=== PATIENT | female | born 1960 | race Caucasian/White ===

== ENCOUNTER 2016-10-29 12:31 | Inpatient (IN) | payer OTHER ==
[~2016-10-29] VITALS: Ht 162.6 cm; Wt 70.1 kg
[2016-10-29] MEDS ORDERED: ASPI1TAB69 PO (12:57)
[2016-10-29] MEDS ORDERED: LIPI40TA PO (12:57)
[2016-11-04] VITALS (12 sets, daily range): BP systolic 122–147; BP diastolic 57–94; PULSE 73–91; RESP 14–20; TEMP 97.5–98.2; O2SAT 96–100
[2016-11-04] MEDS ORDERED: INSULIN HUMAN REGULAR 1,000 UNITS/10 ML VIAL SQ PRN (07:00)
[2016-11-04] MEDS ORDERED: METOPROLOL TARTRATE 25 MG TAB PO PRN (07:00)
[2016-11-04] MEDS ORDERED: LACTATED RINGER'S 1000 ML IV SCH (07:00)
[2016-11-04] MEDS ORDERED: SODIUM CHLORID 0.9% 500 ML IV SCH (07:00)
[2016-11-04] MEDS ORDERED: HEPARIN SODIUM - SQ 10,000 UNITS/ML VIAL ONE (07:23)
[2016-11-04] MEDS ORDERED: PROTAMINE SULFATE 50 MG/5 ML VIAL ONE (07:24)
--- NOTE | 2016-11-04 07:40 | HHI.HP ---
History of Present Illness Chief Complaint: TIAs (R eye amaurosis) History of Present Illness 56 yo female with R eye amaurosis and headaces. Her worst headaches were back in Nov but now just steady. No motor CVA/TIA. CT scan showed string sign of R ICA and high grade stenosis of L ICA. On appropriate medical therapy. Presents for R CEA. 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, but on disability now appropriately Family History none Home Medications Reported Medications Aspirin 81 Mg Tabdr81 Mg PO DAILY 10/29/16 Atorvastatin (Lipitor)40 Mg Tab40 Mg PO DAILY #30 TAB Ref 0 10/29/16 Discontinued Scripts Trimethoprim/Sulfamethoxazole (Bactrim Ds) Tab1 Tab PO Q12 5 Days Prov:Shaniqua Randle MD 12/09/13 Coded Allergies: Ciprofloxacin (Verified Allergy, Severe, Hives, ANAPHYLAXIS, 11/04/16) Codeine (Verified Allergy, Severe, Itching, 11/04/16) Penicillin (Verified Allergy, Severe, Hives, ANAPHYLAXIS, 11/04/16) Review of Systems Constitutional: DENIES: Fever, Weight loss, Chills Eyes: COMPLAINS OF: Vision loss Cardiovascular: DENIES: Chest pain, Orthopnea Physical Exam Vitals/I&O Date Time Temp Pulse Resp B/P Pulse Ox O2 Delivery O2 Flow Rate FiO2 11/04/16 07:13 98.1 86 18 123/82 98 Neuro: alert, oriented, no distress HEENT: PERRLA, EOMI, anicteric Neck: no JVD, no rashes on neck Heart: reg rate Lungs: clear, nonlabored Abdomen: NT Vascular: palp UE pulses Extremities: no CCE Hct 37 Plt 268 Cr 0.8 CTA reviewed - string sign R ICA with distal diminutive ICA (?underperfused) L ICA high grade calcific stenosis Assessment and Plan Plan R CEA today. I discussed risks and benefits with the patient in clinic and reiterated today. She understands and agrees to proceed to OR. R neck marked. Discharge Planning 1-2 d post surgery Benson De Paz MD Nov 04, 2016 07:40
[2016-11-04] MEDS ORDERED: CLINDAMYCIN INJ 900 MG in SODIUM CHLORIDE 0.9% INJ 100 ML IV SCH (08:15)
[2016-11-04] MEDS ORDERED: HEPARIN SODIUM - IV 10,000 UNITS/10 ML VIAL ONE (08:38)
[2016-11-04] MEDS: D5-1/2 NS + KCL 20 MEQ INJ 1,000 ML IV SCH (10:09)
--- NOTE | 2016-11-04 10:09 | HHI.PR ---
cc: Myron Grewal MD Immediate Post Op Note Procedure Date: Nov 04, 2016 Pre Op Diagnosis: symptomatic R carotid stenosis Post Op Diagnosis: symptomatic R carotid stenosis Surgeon: Benson De Paz Personnel Consultant(s): Dimitri Campuzano Procedure: R CEA Findings: high grade stenosis, successful TEA and patch good Doppler signals distal ICA and ECA after patch Additional Information: WALLACE at conclusion of case Complications: none apparent Specimen(s) removed: carotid plaque, not for pathology Estimated blood loss: 150 mL Anesthesia: General Drains: None Fluids: 1600 mL x'oid IVF Patient to: PACU Patient Condition: Good Implant/Devices: SEE IMPLANT LOG (if applicable) Date/Time of Procedure: SEE SURGICAL CARE RECORD Benson De Paz MD Nov 04, 2016 10:09
[2016-11-04] MEDS ORDERED: MORPHINE SULFATE 4 MG/ML INJ IV PRN (10:15)
[2016-11-04] MEDS ORDERED: HYDROmorphone HCL 2 MG TAB PO PRN (10:15)
[2016-11-04] MEDS ORDERED: fentaNYL CITRATE 250 MCG/5 ML AMP ONE ×2 (10:28→10:29)
[2016-11-04] MEDS ORDERED: MIDAZOLAM HCL 2 MG/2 ML VIAL ONE (10:28)
[2016-11-04] MEDS ORDERED: *HYDROmorphone PF 1 MG VIAL PERIprocedural Use ONLY ONE ×4 (10:45→13:28)
[2016-11-04] MEDS ORDERED: *hydrOXYzine 25 MG VIAL PERIprocedural Use ONLY IM ONE (11:11)
[2016-11-04] MEDS ORDERED: SODIUM CHLORID 0.9% 500 ML INJ 500 ML IV ONE (12:00)
[2016-11-04] MEDS ORDERED: PHENYLEPHRINE HCL 10 MG/ML VIAL IV ONE (12:00)
[2016-11-04] MEDS ORDERED: PROPOFOL 500 MG/50 ML BTL IV ONE (12:00)
[2016-11-04] MEDS ORDERED: ONDANSETRON HCL 4 MG/2 ML VIAL IV PUSH ONE (12:00)
[2016-11-04] MEDS ORDERED: SODIUM CHLOR 0.9% 250 ML INJ 250 ML IV ONE (12:00)
[2016-11-04] MEDS ORDERED: LACTATED RINGER'S 1000 ML INJ 1,000 ML IV ONE (12:00)
[2016-11-04] MEDS ORDERED: NORMOSOL R INJ 1,000 ML IV ONE (12:00)
--- NOTE | 2016-11-04 12:38 | PD.VS.PN ---
Subjective POD #: 0 Procedure(s): R CEA Subjective/Hospital Course doing well in PACU, no complaints except incisional pain Neuro intact Objective Vitals/I&O Date Time Temp Pulse Resp B/P Pulse Ox O2 Delivery O2 Flow Rate FiO2 11/04/16 12:00 79 16 138/85 100 Nasal Cannula 2 11/04/16 11:30 70 16 120/51 100 Nasal Cannula 2 11/04/16 11:15 80 15 129/63 100 Nasal Cannula 3 11/04/16 11:00 80 16 122/59 100 Nasal Cannula 3 11/04/16 10:45 79 15 139/87 98 Nasal Cannula 3 11/04/16 10:30 87 15 127/66 98 Nasal Cannula 3 11/04/16 10:21 97.6 81 15 120/72 99 Nasal Cannula 3 11/04/16 07:13 98.1 86 18 123/82 98 11/04/16 11/04/16 11/04/16 07:00 15:00 23:00 Intake Total 1500 ml Output Total 750 ml Balance 750 ml Exam: R neck incision c/d/i WALLACE x 4 CN intact Laboratory Laboratory Tests Test 11/04/16 07:03 Blood Type A NEGATIVE Antibody Screen NEGATIVE Blood Bank Comment Assessment and Plan Plan Neuro intact after R CEA BP control Diet OOB ad ros ASA, statin Discharge Planning likely tomorrow Benson De Paz MD Nov 04, 2016 12:38
[2016-11-04] MEDS ORDERED: LORazepam 2 MG/ML VIAL ONE (12:45)
[2016-11-04] MEDS: LORazepam 2 MG/ML VIAL IV PUSH PRN (15:24)
[2016-11-04] MEDS: HYDROmorphone HCL PF 2 MG/ML VIAL IV PUSH PRN ×2 (18:34→22:23)
[2016-11-04] MEDS ORDERED: ATORVASTATIN 40 MG TAB PO SCH (21:00)
[2016-11-04] MEDS: DOCUSATE SODIUM 100 MG CAP PO SCH (21:00)
[2016-11-04] MEDS: METOPROLOL TARTRATE 25 MG TAB PO SCH (22:14)
[2016-11-05] VITALS (14 sets, daily range): BP systolic 121–125; BP diastolic 78–80; PULSE 73–96; RESP 14–20; TEMP 97.8–98.5; O2SAT 94–97
[2016-11-05] MEDS: LORazepam 2 MG/ML VIAL IV PUSH PRN (02:51)
[2016-11-05] MEDS: HYDROmorphone HCL PF 2 MG/ML VIAL IV PUSH PRN (02:51)
[2016-11-05] MEDS: METOPROLOL TARTRATE 25 MG TAB PO SCH (07:47)
[2016-11-05] MEDS: DOCUSATE SODIUM 100 MG CAP PO SCH (07:47)
[2016-11-05 07:55] LABS: HEMATOCRIT 34.7 % (35.0-46.0); MEAN CELL VOLUME 95.4 FL (80.0-100.0); MEAN CORPUSCULAR HEMOGLOBIN 32.7 PG (27.0-34.0); MEAN CORPUSCULAR HGB CONC 34.2 % (32.0-36.0); PLATELET COUNT 181 TH/MM3 (150-450); RED BLOOD COUNT 3.64 MIL/MM3 (4.00-5.30); REVIEW FLAG FINAL; WHITE BLOOD COUNT 5.9 TH/MM3 (4.0-11.0)
[2016-11-05 08:17] LABS: BICARBONATE 27.5 MEQ/L (21.0-32.0); POTASSIUM 4.3 MEQ/L (3.5-5.1)
[2016-11-05] MEDS ORDERED: ENOXAPARIN SODIUM 30 MG/0.3 ML SYRINGE SQ SCH (09:00)
[2016-11-05] MEDS ORDERED: PANTOPRAZOLE SOD 40 MG DELAYED RELEASE TAB PO SCH (09:00)
[2016-11-05] MEDS ORDERED: ASPIRIN 325 MG TAB PO SCH (09:00)
[2016-11-05] MEDS: D5-1/2 NS + KCL 20 MEQ INJ 1,000 ML IV SCH (10:11)
--- NOTE | 2016-11-05 11:07 | PD.VS.PN ---
Subjective Subjective/Hospital Course no complaints except incisional pain Neuro intact Objective Vitals/I&O Date Time Temp Pulse Resp B/P Pulse Ox O2 Delivery O2 Flow Rate FiO2 11/05/16 10:00 84 11/05/16 09:00 88 11/05/16 08:00 98.5 95 14 123/80 97 11/05/16 08:00 90 11/05/16 07:00 96 11/05/16 06:00 94 11/05/16 05:00 91 11/05/16 04:00 91 11/05/16 03:00 85 11/05/16 03:00 97.8 89 20 121/80 97 11/05/16 02:00 85 11/05/16 01:00 87 11/05/16 00:00 88 11/04/16 23:00 98.1 84 18 124/57 96 11/04/16 23:00 91 11/04/16 22:00 82 11/04/16 21:00 86 11/04/16 20:00 86 11/04/16 19:00 81 11/04/16 19:00 98.2 73 20 122/79 99 Arterial Line 11/04/16 18:01 81 11/04/16 17:30 97.5 82 14 147/82 100 11/04/16 17:00 78 11/04/16 16:10 80 11/04/16 15:00 80 11/04/16 15:00 97.8 73 16 144/88 100 11/04/16 14:00 80 11/04/16 14:00 98.0 80 16 143/94 100 11/04/16 13:45 98.3 74 16 124/56 98 Nasal Cannula 2 11/04/16 13:30 75 16 126/58 96 Room Air 11/04/16 13:00 70 15 124/56 100 Nasal Cannula 2 11/04/16 12:30 77 15 121/73 100 Nasal Cannula 2 11/04/16 12:00 79 16 138/85 100 Nasal Cannula 2 11/04/16 11:30 70 16 120/51 100 Nasal Cannula 2 11/04/16 11:15 80 15 129/63 100 Nasal Cannula 3 Physical Exam right neck incision clean. right neck minimal tenderness. CN2-12 intact. Gross motor and sensory intact upper and lower extremities. Laboratory Laboratory Tests Test 11/05/16 07:07 White Blood Count 5.9 Red Blood Count 3.64 Hemoglobin 11.9 Hematocrit 34.7 Mean Corpuscular Volume 95.4 Mean Corpuscular Hemoglobin 32.7 Mean Corpuscular Hemoglobin 34.2 Concent Red Cell Distribution Width 14.0 Platelet Count 181 Mean Platelet Volume 8.0 Sodium Level 137 Potassium Level 4.3 Chloride Level 102 Carbon Dioxide Level 27.5 Anion Gap 8 Blood Urea Nitrogen 7 Creatinine 0.73 Estimat Glomerular Filtration 83 Rate Random Glucose 112 Calcium Level 8.6 Assessment and Plan Plan Neuro intact after R CEA Will see if tolerates lunch with pain meds. Increased motion without pain when turning neck. Plan for discharge later today with PO pain meds. Full discharge summary to follow. Dimitri Johnson DO, KALYAN Discharge Planning likely tomorrow Dimitri Johnson DO Nov 05, 2016 11:07
--- NOTE | 2016-11-05 12:59 | PD.VS.DC ---
Discharge Summary Admission Date: Nov 04, 2016 at 06:31 Discharge Date: Nov 05, 2016 Admission Diagnosis: (1) Carotid artery disease Discharge Diagnosis: (1) S/P carotid endarterectomy Status: Acute Brief History from admission 56 yo female with R eye amaurosis and headaches. Her worst headaches were back in Nov but now just steady. No motor CVA/TIA. CT scan showed string sign of R ICA and high grade stenosis of L ICA. On appropriate medical therapy. Presents for R CEA. No interval changes in history Procedure(s): R CEA Significant Findings GENERAL: A&OX3, Affect appropriate to situation, NAD, GCS 15 SKIN: Warm and dry. Incision to right side of neck intact with surgical glue, NO redness, swelling or drainage NECK: Supple CARDIOVASCULAR: +S1,S2 RESPIRATORY: Breath sounds equal bilaterally. No accessory muscle use. MUSCULOSKELETAL: No cyanosis, or edema. CN 2-12 intact Laboratory Tests Test 11/05/16 07:07 Red Blood Count 3.64 MIL/MM3 (4.00-5.30) Hematocrit 34.7 % (35.0-46.0) Estimat Glomerular Filtration 83 ML/MIN (>89) Rate Random Glucose 112 MG/DL (74-106) Hospital Course: Pt has a hx of symptomatic carotid artery disease Was admitted for surgical intervention R CEA Pt has done well post-op with CN 2-12 intact, noted to have NO neurological deficits throughout visit Pt will f/u in our OPC on 11/26/16 Allergies Coded Allergies Type Severity Reaction Last Updated Verified Ciprofloxacin Allergy Severe Hives, ANAPHYLAXIS 11/04/16 Yes Codeine Allergy Severe Itching 11/04/16 Yes Penicillin Allergy Severe Hives, ANAPHYLAXIS 11/04/16 Yes 11/03///////// 06:00 18:00 06:00 18:00 06:00 18:00 Intake Total 2132 ml 1038 ml Output Total 1600 ml 1800 ml Balance 532 ml -762 ml Intake Oral 180 ml 720 ml IV Total 452 ml 318 ml Other 1500 ml Output Urine Total 1450 ml 1800 ml Estimated Blood Loss 150 ml # Bowel Movements 1 0 Laboratory Tests Test 11/04/16 11/05/16 07:03 07:07 Blood Type A NEGATIVE Antibody Screen NEGATIVE Blood Bank Comment White Blood Count 5.9 TH/MM3 Red Blood Count 3.64 MIL/MM3 Hemoglobin 11.9 GM/DL Hematocrit 34.7 % Mean Corpuscular Volume 95.4 FL Mean Corpuscular Hemoglobin 32.7 PG Mean Corpuscular Hemoglobin 34.2 % Concent Red Cell Distribution Width 14.0 % Platelet Count 181 TH/MM3 Mean Platelet Volume 8.0 FL Sodium Level 137 MEQ/L Potassium Level 4.3 MEQ/L Chloride Level 102 MEQ/L Carbon Dioxide Level 27.5 MEQ/L Anion Gap 8 MEQ/L Blood Urea Nitrogen 7 MG/DL Creatinine 0.73 MG/DL Estimat Glomerular Filtration 83 ML/MIN Rate Random Glucose 112 MG/DL Calcium Level 8.6 MG/DL Procedure Category Date Status Time Type And Screen BBK 11/04/16 Complete 06:36 Lactated Ringer's MED 11/04/16 Complete 1000 Ml Inj (Lr 1000 M 07:00 Sodium Chlorid 0.9% MED 11/04/16 Complete 500 Ml Inj (Ns 500 M 07:00 Insulin Human Regular MED 11/04/16 Complete Inj (Novolin R Inj 07:00 Metoprolol Tartrate MED 11/04/16 Complete (Lopressor) 07:00 Heparin Inj (Heparin MED 11/04/16 Complete Inj) 07:23 Protamine Sulfate Inj MED 11/04/16 Complete (Protamine Sulfate 07:24 Clindamycin Inj MED 11/04/16 Complete (Cleocin Inj) 08:15 Heparin Inj (Heparin MED 11/04/16 Complete Inj) 08:38 Am Admit Pre Op Care [facility] 11/04/16 Complete Admit To Inpatient ADMITTING 11/04/16 Transmitted Code Status CODE 11/04/16 Transmitted 10:09 Vital Signs (Adult) DREA 11/04/16 In Process 10:09 Sourcing Specialist / DREA 11/04/16 In Process Telemetry 10:09 Activity Oob Ad Yuliya DREA 11/04/16 In Process 10:09 ^ Notify Dr. SHEPARD 11/04/16 In Process Parameters 10:09 Diet Heart Healthy DIET 11/04/16 Transmitted Lunch Basic Metabolic Panel LAB 11/05/16 Complete (Bmp) 06:00 Cbc No Diff, Includes LAB 11/05/16 Complete Plts 06:00 D5-1/2 Ns + Kcl 20 MED 11/04/16 In Process Meq Inj (D5-1/2 Ns + 10:09 Aspirin (Aspirin) MED 11/05/16 In Process 09:00 Pantoprazole MED 11/05/16 In Process (Protonix) 09:00 Metoprolol Tartrate MED 11/04/16 In Process (Lopressor) 21:00 Atorvastatin (Lipitor) MED 11/04/16 In Process 21:00 Hydromorphone MED 11/04/16 In Process (Dilaudid) 10:15 Morphine Inj MED 11/04/16 Complete (Morphine Inj) 10:15 Docusate Sodium MED 11/04/16 In Process (Colace) 21:00 Scd Bilateral/Knee DREA 11/04/16 In Process High 10:09 Inpatient ADMITTING 11/04/16 Transmitted Certification Enoxaparin Inj MED 11/05/16 Logged (Lovenox Inj) 09:00 Fentanyl Inj MED 11/04/16 Complete (Fentanyl Inj) 10:28 Midazolam Inj (Versed MED 11/04/16 Complete Inj) 10:28 Fentanyl Inj MED 11/04/16 Complete (Fentanyl Inj) 10:29 *Hydromorphone Pf Inj MED 11/04/16 Complete (*Dilaudid Pf Inj 10:45 *Hydromorphone Pf Inj MED 11/04/16 Complete (*Dilaudid Pf Inj 10:58 *Hydroxyzine Inj MED 11/04/16 Complete (*Vistaril Inj 11:11 *Hydromorphone Pf Inj MED 11/04/16 Complete (*Dilaudid Pf Inj 11:28 Hydromorphone Pf Inj MED 11/04/16 In Process (Dilaudid Pf Inj) 12:45 Lorazepam Inj (Ativan MED 11/04/16 Complete Inj) 12:45 *Hydromorphone Pf Inj MED 11/04/16 Complete (*Dilaudid Pf Inj 13:28 Lorazepam Inj (Ativan MED 11/04/16 In Process Inj) 15:00 Class [facility] Complete MIN [facility]/04/16 Complete Post Anesthesia [facility] 11/04/16 Complete Pacu [facility] 11/04/16 Complete Hourly Attending Discharge DISCHARGE 11/05/16 Transmitted Order Vital Signs Date Time Temp Pulse Resp B/P Pulse Ox O2 Delivery O2 Flow Rate FiO2 11/05/16 12:00 78 11/05/16 12:00 98.4 73 16 125/78 94 11/05/16 11:00 75 11/05/16 10:00 84 11/05/16 09:00 88 11/05/16 08:00 98.5 95 14 123/80 97 11/05/16 08:00 90 11/05/16 07:00 96 11/05/16 06:00 94 11/05/16 05:00 91 11/05/16 04:00 91 11/05/16 03:00 85 11/05/16 03:00 97.8 89 20 121/80 97 11/05/16 02:00 85 11/05/16 01:00 87 11/05/16 00:00 88 11/04/16 23:00 98.1 84 18 124/57 96 11/04/16 23:00 91 11/04/16 22:00 82 11/04/16 21:00 86 11/04/16 20:00 86 11/04/16 19:00 81 11/04/16 19:00 98.2 73 20 122/79 99 Arterial Line 11/04/16 18:01 81 11/04/16 17:30 97.5 82 14 147/82 100 11/04/16 17:00 78 11/04/16 16:10 80 11/04/16 15:00 80 11/04/16 15:00 97.8 73 16 144/88 100 11/04/16 14:00 80 11/04/16 14:00 98.0 80 16 143/94 100 11/04/16 13:45 98.3 74 16 124/56 98 Nasal Cannula 2 11/04/16 13:30 75 16 126/58 96 Room Air 11/04/16 13:00 70 15 124/56 100 Nasal Cannula 2 11/04/16 12:30 77 15 121/73 100 Nasal Cannula 2 11/04/16 12:00 79 16 138/85 100 Nasal Cannula 2 11/04/16 11:30 70 16 120/51 100 Nasal Cannula 2 11/04/16 11:15 80 15 129/63 100 Nasal Cannula 3 11/04/16 11:00 80 16 122/59 100 Nasal Cannula 3 11/04/16 10:45 79 15 139/87 98 Nasal Cannula 3 11/04/16 10:30 87 15 127/66 98 Nasal Cannula 3 11/04/16 10:21 97.6 81 15 120/72 99 Nasal Cannula 3 11/04/16 07:13 98.1 86 18 123/82 98 Discharge Condition: Good Discharge Disposition: Discharge Home Discharge Instructions: Keep incision clean and dry and open to air Avoid perfume, creams or ointments to incision site Report any New-Onset fever, Headache, swelling, drainage or redness ti incision site Follow-up at scheduled appointment time 11/26/16 Call the office with any questions or concerns Maryellen GASPAR [facility]/[place] [phone] Any questions or concerns: Call [facility] Surgery at [facility] [phone] Maryellen Knight Nov 05, 2016 12:59
--- NOTE | 2016-11-07 21:36 | MP ---
cc: FRANCISCO DE PAZ MD DATE OF SURGERY November 04, 2016 PREOPERATIVE DIAGNOSIS Symptomatic right carotid stenosis. POSTOPERATIVE DIAGNOSIS Symptomatic right carotid stenosis. OPERATION Right carotid endarterectomy. ATTENDING SURGEON Francisco De Paz MD BPO SPECIALIST SURGEON Dr. Dimitri Campuzano ANESTHESIA General. INDICATION Ms. Yee is a 56-year-old lady who has symptomatic right carotid stenosis manifesting as amaurosis. She is taken to the operating room for elective endarterectomy. Preoperatively risks and benefits including stroke and transient ischemic attack were discussed with the patient. PROCEDURE DETAILS Informed consent was obtained from the patient. She was taken to the operating room and placed supine on the operating table. An appropriate time out was taken to assure the patient's identity and the operative site and planned procedure. 900 milligrams of Clindamycin were administered prior to skin incision and will be discontinued after a single preoperative dose. The patient has a penicillin allergy. Everyone in the room agreed with time out and we proceeded. The right neck was prepped and draped and an incision was made along the anterior border of the sternocleidomastoid and carried down to the subcutaneous tissue with electrocautery. The facial vein was identified and ligated between 3-0 silk. The carotid artery was identified, dissected from the common carotid artery which was very calcified. The external and internal carotid arteries and hypoglossal nerve identified and protected. The patient was systemically heparinized. Once the heparin was effective to an ACT of greater than 250, distal then proximal control were obtained and a longitudinal arteriotomy was made with an 11 blade and extended with Fuller scissors. There was a high grade near occlusive lesion at the carotid bifurcation. The distal carotid was noted to be quite small. Attempts were made to place a shunt, however, this was unsuccessful. The carotid back bled quite nicely and there were no neurological changes and so I was justified and safe in proceeding without a shunt. The carotid artery was endarterectomized without difficulty. A single 6-0 tacking suture was made. Once we achieved a good endarterectomy end point proximally, distally and down the external carotid, the arteriotomy was closed with a patch using running 6-0 Prolene suture. At the completion it was flushed and noted to be hemostatic with repair sutures. There was a nice Doppler signal in the distal internal carotid artery. The heparin was reversed with protamine. There were no neurological changes throughout. The wound was irrigated and made hemostatic and closed with 2-0 Vicryl and 4-0 Monocryl. Sponge and needle counts were correct at the end of the case. I was present and scrubbed for the entire procedure. MD MAURILIO Vargas/LAN /12:54 PM /8:07 PM [email or web address]
== END 2016-11-05 13:39 | disposition home or self-care (01) | DRG 39 ==
LOC: HSDI 11-04 06:31 → HCIN 11-04 13:58
PROVIDERS: ADMIT Surgery; ATTEND Surgery
PROC: 03CM0Z6 (ICD-10-PCS; 2016-11-04)
PROC: 03UM0JZ Supplement Right External Carotid Artery with Synthetic Substitute, Open Approach (ICD-10-PCS; 2016-11-04)
PROC: 03UK0JZ Supplement Right Internal Carotid Artery with Synthetic Substitute, Open Approach (ICD-10-PCS; 2016-11-04)
PROC: 03CK0Z6 (ICD-10-PCS; principal; 2016-11-04 07:55)
DX: I65.21 Occlusion and stenosis of right carotid artery (principal); I10 Essential (primary) hypertension; H54.0 Blindness, both eyes; Z79.82 Long term (current) use of aspirin; F17.210 Nicotine dependence, cigarettes, uncomplicated; E78.5 Hyperlipidemia, unspecified
CPT/HCPCS: 80048; 85027; 86850; 86900; 86901; C1768; J1170; J1644; J1650; J2060; J2250; J2370; J2405; J2720; J3010; J3410; J3480; J7040; J7050; J7120

== ENCOUNTER → 2016-10-29 | Outpatient (CLI) | payer OTHER ==
[~2016-10-29] MED LIST: ASPI1TAB69 PO; DILA2TAB2 PO; LIPI40TA PO; SULF1TAB47 PO
--- NOTE | 2016-10-29 13:26 | RADRPT ---
EXAM DATE/TIME: 10/29/2016 13:21 [place] COMPARISON: No previous studies available for comparison. INDICATIONS : Evaluate for pneumothorax, pneumonia or communicable disease. Pre-operative for corotid artery surger y. MEDICAL HISTORY : None. SURGICAL HISTORY : Breast augmentation. ENCOUNTER: Initial ACUITY: 1 day PAIN SCORE: 0/10 LOCATION: Bilateral chest FINDINGS: PA and lateral views of the chest demonstrate the lungs to be symmetrically aerated without evidence of mass, infiltrate or effusion. The cardiomediastinal contours are unremarkable. Osseous structure s are intact. CONCLUSION: No acute disease. Emerson Mcgee MD on October 29, 2016 at 13:24 Board Certified Radiologist. This report was verified electronically.
[2016-10-29 13:33] LABS: HEMATOCRIT 37.2 % (35.0-46.0); MEAN CELL VOLUME 94.1 FL (80.0-100.0); MEAN CORPUSCULAR HEMOGLOBIN 33.2 PG (27.0-34.0); MEAN CORPUSCULAR HGB CONC 35.2 % (32.0-36.0); PLATELET COUNT 268 TH/MM3 (150-450); RED BLOOD COUNT 3.95 MIL/MM3 (4.00-5.30); RED CELL DISTRIBUTION WIDTH 13.8 % (11.6-17.2); REVIEW FLAG FINAL; WHITE BLOOD COUNT 6.6 TH/MM3 (4.0-11.0)
[2016-10-29 13:39] LABS: INTERNATIONAL NORMALIZED RATIO 0.9 RATIO
[2016-10-29 13:44] LABS: BLOOD, URINE TRACE (NEG); COMMENT (UR) CULT NOT INDICATED; CULTURE IF INDICATED CULT NOT INDICATED; GLUCOSE,URINE NEG (NEG); KETONE, URINE NEG (NEG); MUCUS URINE FEW /lpf (OCC); NITRITE,URINE NEG (NEG); PH, URINE 5.5 (5.0-8.5); SQUAMOUS EPITHELIAL CELL URINE <1 /hpf (0-5); URINE COLOR LIGHT-YELLOW (YELLW/STRAW)
[2016-10-29 13:53] LABS: BICARBONATE 27.2 MEQ/L (21.0-32.0); POTASSIUM 4.1 MEQ/L (3.5-5.1)
== END ==
LOC: CPRE 12:27
PROVIDERS: ATTEND Surgery
DX: Z01.812 Encounter for preprocedural laboratory examination (principal); Z01.811 Encounter for preprocedural respiratory examination; I65.23 Occlusion and stenosis of bilateral carotid arteries
CPT/HCPCS: 36415; 71020; 80048; 81001; 85027; 85610; 85730

== ENCOUNTER 2016-12-13 10:05 | Inpatient (IN) | payer OTHER ==
[~2016-12-13] VITALS: Ht 162.6 cm; Wt 70.0 kg
[~2016-12-13 10:05] MED LIST changes: -DILA2TAB2 PO
[2016-12-14] VITALS (8 sets, daily range): BP systolic 97–141; BP diastolic 52–78; PULSE 41–87; RESP 16–20; TEMP 97.6–98.2; O2SAT 96–99
[2016-12-14] MEDS ORDERED: LACTATED RINGER'S 1000 ML IV PRN (06:00)
[2016-12-14] MEDS ORDERED: METOPROLOL TARTRATE 25 MG TAB PO PRN (06:00)
[2016-12-14] MEDS ORDERED: SODIUM CHLORID 0.9% 500 ML IV PRN (06:00)
[2016-12-14] MEDS ORDERED: INSULIN HUMAN REGULAR 1,000 UNITS/10 ML VIAL SQ PRN (06:00)
[2016-12-14] MEDS ORDERED: CHLORHEXIDINE GLUCONATE 2 % 1 PACK (2 CLOTHS) TOPICAL PRN (06:00)
[2016-12-14] MEDS ORDERED: POVIDONE IODINE 5% (ANTISEPSIS KIT) 4 APPLICATIONS EACH NARE PRN (06:00)
[2016-12-14] MEDS ORDERED: VANCOMYCIN HCL 1000 MG VIAL ONE (06:27)
[2016-12-14] MEDS ORDERED: HEPARIN SODIUM - IV 10,000 UNITS/10 ML VIAL ONE (06:27)
[2016-12-14] MEDS ORDERED: HEPARIN SODIUM - SQ 10,000 UNITS/ML VIAL ONE (06:27)
--- NOTE | 2016-12-14 06:40 | PD.VS.PN ---
Pre-operative Note Pre-operative diagnosis: L carotid stenosis, >80%, asymptomatic Planned procedure: L CEA Interval History: The patient has had no interval changes that would preclude OR. Specifically, no F/C/N/V/D Labs: Hct 38 plt 238 INR 0.9 creatinine 0.7 Blood: T&S Imaging: CTA reviewed - high grade L ICA stenosis Orders: NPO clindamycin 600mg IV OCTOR (PCN allergy) Post-operative destination: CVICU Operative site marked: Yes Consent: Informed consent has been obtained from Jeanette Yee. I have explained the procedure in detail and discussed the risks, benefits, and potential complications. All questions have been answered. Patient contact information: friend phone number on chart Benson De Paz MD Dec 14, 2016 06:40
[2016-12-14] MEDS ORDERED: THROMBIN (TOPICAL) 20,000 UNIT SPRAY KIT OTHER ONE (08:33)
[2016-12-14] MEDS ORDERED: CLINDAMYCIN 600 MG/NS 100 ML IV SCH ×2 (09:00)
--- NOTE | 2016-12-14 09:20 | HHI.PR ---
cc: Myron Grewal MD Immediate Post Op Note Procedure Date: Dec 14, 2016 Pre Op Diagnosis: high grade, asymptomatic L carotid stenosis Post Op Diagnosis: high grade, asymptomatic L carotid stenosis Surgeon: Benson De Paz Metal Refiner(s): Servando Crenshaw Procedure: L CEA Findings: calcific plaque at bifurcation Complications: none apparent, awoke neuro intact Specimen(s) removed: plaque but not for pathology Estimated blood loss: 100mL Anesthesia: General Drains: None Fluids: 1300 mL x'oid; 300 mL UOP IVF, Other (CVICU) Patient Condition: Good Implant/Devices: SEE IMPLANT LOG (if applicable) Date/Time of Procedure: SEE SURGICAL CARE RECORD Benson De Paz MD Dec 14, 2016 09:20
[2016-12-14] MEDS ORDERED: fentaNYL CITRATE 250 MCG/5 ML AMP ONE (09:44)
[2016-12-14] MEDS ORDERED: PILL SPLITTER OTHER PRN (10:45)
[2016-12-14] MEDS: MORPHINE SULFATE 4 MG/ML INJ IV PUSH PRN ×3 (11:21→22:54)
[2016-12-14] MEDS: HYDROmorphone HCL 2 MG TAB PO PRN ×2 (11:29→19:55)
[2016-12-14] MEDS ORDERED: SODIUM CHLOR 0.9% 250 ML INJ 250 ML IV ONE (12:00)
[2016-12-14] MEDS ORDERED: ePHEDrine/NS 25 MG/5 ML SYR IV ONE (12:00)
[2016-12-14] MEDS ORDERED: ONDANSETRON HCL 4 MG/2 ML VIAL IV PUSH ONE (12:00)
[2016-12-14] MEDS ORDERED: NORMOSOL R INJ 1,000 ML IV ONE (12:00)
[2016-12-14] MEDS ORDERED: PHENYLEPHRINE HCL 10 MG/ML VIAL IV ONE (12:00)
[2016-12-14] MEDS ORDERED: NEOSTIGMINE 3 MG/3 ML SYR IV ONE (12:00)
[2016-12-14] MEDS ORDERED: PROPOFOL 200 MG/20 ML AMP IV ONE (12:00)
[2016-12-14] MEDS ORDERED: SODIUM CHLORID 0.9% 500 ML INJ 500 ML IV ONE (12:00)
--- NOTE | 2016-12-14 15:33 | PD.VS.PN ---
Subjective POD #: 0 Procedure(s): L CEA Subjective/Hospital Course Feels great, no JONES, no neuro deficits Ate [place] food for lunch Objective Vitals/I&O Date Time Temp Pulse Resp B/P Pulse Ox O2 Delivery O2 Flow Rate FiO2 12/14/16 12:30 18 12/14/16 11:00 78 12/14/16 11:00 98.1 74 18 127/67 98 12/14/16 09:30 87 12/14/16 09:27 97.6 87 18 130/78 99 141/69 12/14/16 06:12 97.7 80 20 107/66 98 Exam: L neck c/d/i Neuro intact CN intact Incisions: c/d/i with dermabond Laboratory Laboratory Tests Test 12/14/16 06:20 Blood Type A NEGATIVE Antibody Screen NEGATIVE Assessment and Plan Plan Looks great after CEA 1. D/C Sanchez today 2. Reg diet 3. OOB ad ros Discharge Planning anticipate d/c tomorrow (POD#1) Benson De Paz MD Dec 14, 2016 15:33
[2016-12-14] MEDS: DOCUSATE SODIUM 100 MG CAP PO SCH (19:55)
[2016-12-14] MEDS: METOPROLOL TARTRATE 25 MG TAB PO SCH (19:56)
[2016-12-14] MEDS ORDERED: ATORVASTATIN 40 MG TAB PO SCH (21:00)
[2016-12-15] MEDS: HYDROmorphone HCL 2 MG TAB PO PRN ×2 (02:19→06:10)
[2016-12-15 03:22] VITALS: BP 96/56; PULSE 62; PULSE 84; RESP 15; TEMP 98.1; O2SAT 96
[2016-12-15 05:58] LABS: HEMATOCRIT 33.8 % (35.0-46.0); MEAN CORPUSCULAR HEMOGLOBIN 31.7 PG (27.0-34.0); MEAN CORPUSCULAR HGB CONC 33.3 % (32.0-36.0); PLATELET COUNT 205 TH/MM3 (150-450); RED BLOOD COUNT 3.56 MIL/MM3 (4.00-5.30); RED CELL DISTRIBUTION WIDTH 14.6 % (11.6-17.2); REVIEW FLAG FINAL; WHITE BLOOD COUNT 7.1 TH/MM3 (4.0-11.0)
[2016-12-15 06:27] LABS: BICARBONATE 28.4 MEQ/L (21.0-32.0); POTASSIUM 3.8 MEQ/L (3.5-5.1)
[2016-12-15 07:00] VITALS: BP 107/58; PULSE 82; RESP 17; TEMP 98.2; O2SAT 96
--- NOTE | 2016-12-15 07:19 | PD.VS.PN ---
Subjective POD #: 1 Procedure(s): L CEA Subjective/Hospital Course tired but neuro intact pain controlled yao po Objective Vitals/I&O Date Time Temp Pulse Resp B/P Pulse Ox O2 Delivery O2 Flow Rate FiO2 12/15/16 03:22 98.1 84 15 96/56 96 Arterial Line 12/15/16 03:22 62 12/14/16 23:19 62 12/14/16 23:19 98.0 65 16 97/57 96 111/59 12/14/16 19:21 98.2 72 16 103/52 97 117/61 12/14/16 19:00 72 12/14/16 15:33 16 12/14/16 15:00 98.2 71 16 115/61 96 12/14/16 15:00 41 12/14/16 12:30 18 12/14/16 11:00 78 12/14/16 11:00 98.1 74 18 127/67 98 12/14/16 09:30 87 12/14/16 09:27 97.6 87 18 130/78 99 141/69 12/15/16 12/15/16 12/15/16 07:00 15:00 23:00 Intake Total 720 ml Output Total 2350 ml Balance -1630 ml Exam: Neuro intact L neck incision c/d/i CN intact Laboratory Laboratory Tests Test 12/15/16 05:12 White Blood Count 7.1 Red Blood Count 3.56 Hemoglobin 11.3 Hematocrit 33.8 Mean Corpuscular Volume 95.0 Mean Corpuscular Hemoglobin 31.7 Mean Corpuscular Hemoglobin 33.3 Concent Red Cell Distribution Width 14.6 Platelet Count 205 Mean Platelet Volume 7.9 Sodium Level 141 Potassium Level 3.8 Chloride Level 106 Carbon Dioxide Level 28.4 Anion Gap 7 Blood Urea Nitrogen 11 Creatinine 0.62 Estimat Glomerular Filtration 100 Rate Random Glucose 122 Calcium Level 8.6 Assessment and Plan Plan Reg diet, reg meds with po pain meds F/U 1m with carotid duplex Discharge Planning today Benson De Paz MD Dec 15, 2016 07:19
[2016-12-15] MEDS ORDERED: ENOXAPARIN SODIUM 30 MG/0.3 ML SYRINGE SQ SCH (08:00)
[2016-12-15] MEDS ORDERED: DILA2TAB2 PO (08:23)
--- NOTE | 2016-12-15 08:30 | PD.VS.DC ---
Discharge Summary Admission Date: Dec 14, 2016 at 05:30 Discharge Date: Dec 15, 2016 Admission Diagnosis: (1) Carotid artery disease (2) S/P carotid endarterectomy Discharge Diagnosis: (1) Carotid artery disease Status: Acute (2) S/P carotid endarterectomy Status: Acute Brief History from admission Pt with a Hx of left sided carotid disease, was admitted for surgical intervention Procedure(s): L CEA Significant Findings GENERAL: A&OX3, NAD SKIN: Warm and dry. NECK: Supple, Incision to Left side of neck intact with surgical glue CARDIOVASCULAR: RRR Laboratory Tests Test 12/15/16 05:12 Red Blood Count 3.56 MIL/MM3 (4.00-5.30) Hemoglobin 11.3 GM/DL (11.6-15.3) Hematocrit 33.8 % (35.0-46.0) Random Glucose 122 MG/DL (74-106) Hospital Course: Pt is a 56/F with a hx of Left sided carotid disease Pt was admitted for surgical intervention, has done well without complications Will see the patient in 1M for f/u and surveillance U/S Discharge Condition: Good Discharge Disposition: Discharge Home Discharge Instructions: May shower then pat dry incision Leave incision open to air Do not apply any ointments or creams to incision site Follow up in our OPC at scheduled appointment time 01/07/17 at 2:15 Call the office should you have any questions or concerns Any questions or concerns: Call [facility] at [facility] [phone] Maryellen Knight Dec 15, 2016 08:30
[2016-12-15] MEDS: METOPROLOL TARTRATE 25 MG TAB PO SCH (08:33)
[2016-12-15] MEDS: DOCUSATE SODIUM 100 MG CAP PO SCH (08:33)
[2016-12-15] MEDS ORDERED: ASPIRIN 325 MG TAB PO SCH (09:00)
[2016-12-15] MEDS ORDERED: PANTOPRAZOLE SOD 40 MG DELAYED RELEASE TAB PO SCH (09:00)
--- NOTE | 2016-12-15 11:43 | MP ---
cc: FRANCISCO DE PAZ MD DATE OF SURGERY 12/14/2016 PREOPERATIVE DIAGNOSIS Asymptomatic high-grade left carotid stenosis. POSTOPERATIVE DIAGNOSIS Asymptomatic high-grade left carotid stenosis. PROCEDURE Left carotid endarterectomy ATTENDING SURGEON Francisco De Paz MD FORMS EXAMINER SURGEON Servando Crenshaw ANESTHESIA General INDICATIONS Ms. Yee is a 56 year-old lady who has bilateral high-grade carotid stenoses. Her right side was symptomatic and this was repaired about six weeks ago from which the patient has recovered nicely. Her left side has an asymptomatic high-grade stenosis by CT scan. She is being taken to the operating room for elective repair. DESCRIPTION OF THE PROCEDURE Informed consent was obtained from the patient. She was taken to the operating room, placed supine on the operating room table and an appropriate time out was taken to ensure the patient's identity, operative site and planned procedure. The administration of one grams of vancomycin was initiated prior to the skin incision and will be discontinued after a single preoperative dose. Vancomycin was chosen because of the patient's penicillin allergy. Everyone in the room agreed with the time out procedure and we proceeded. She was placed under general anesthesia and her left neck was prepped and draped. An incision was made along the anterior aspect of the sternocleidomastoid, carried down through the subcutaneous tissue with electrocautery. The anterior branch of the jugular vein was identified and ligated between silk sutures. The jugular vein was mobilized laterally and the common carotid artery, internal and external carotid arteries, and thyroid artery were all dissected free. The internal carotid artery was noted to be quite diminutive and there was an obvious plaque at the carotid bifurcation. We circumferentially dissected all these blood vessels and the patient was systemically heparinized. The ACT was confirmed to be greater than 250 and then distal and then proximal control of the carotids was obtained with Profunda clamps. The external was controlled with a Profunda clamp and the superior thyroid artery was controlled with a silk tie. A longitudinal arteriotomy was made with an 11 blade, extended with Fuller scissors. The artery was endarterectomized without difficulty. A nice end point was then obtained and tacked with 6-0 Prolene suture. Bovine pericardium was brought up on the field and sewn on as a patch using running 5-0 Prolene sutures. At the competion, it was flushed and noted to be hemostatic. The clamps were release. Repair stitch was made with 6-0 Prolene. There was a nice Doppler signal in the ICA and ECA and throughout the entire procedure of carotid endarterectomy and clamping, there were no EEG changes. The wound was made hemostatic. The heparin was reversed with Protamine and the wound was closed with 2-0 Polysorb, 3-0 Polysorb and 4-0 Monocryl. Sponge and needle counts were correct at the end of the case. I was present and scrubbed for the entire procedure. At the conclusion of the case, the patient was awoken and was neurologically intact. She was extubated and taken to the ICU in stable condition. MD MAURILIO Vargas/ASHISH /10:04 AM /11:25 AM
== END 2016-12-15 09:28 | disposition home or self-care (01) | DRG 39 ==
LOC: HSDI 12-14 05:30 → HCVR 12-14 09:40
PROVIDERS: ADMIT Surgery; ATTEND Surgery
PROC: 03UL0KZ Supplement Left Internal Carotid Artery with Nonautologous Tissue Substitute, Open Approach (ICD-10-PCS; 2016-12-14)
PROC: 03CL0ZZ Extirpation of Matter from Left Internal Carotid Artery, Open Approach (ICD-10-PCS; principal; 2016-12-14 07:18)
DX: I65.22 Occlusion and stenosis of left carotid artery (principal)
CPT/HCPCS: 36415; 80048; 81001; 85027; 85610; 85730; 86850; 86900; 86901; C1768; J1644; J1650; J2270; J2370; J2405; J2710; J3010; J3370; J7040; J7050; J7120

== ENCOUNTER → 2016-12-13 | Outpatient (CLI) | payer OTHER ==
[~2016-12-13] MED LIST changes: -SULF1TAB47 PO
[2016-12-13 12:12] LABS: HEMATOCRIT 37.5 % (35.0-46.0); MEAN CORPUSCULAR HEMOGLOBIN 31.7 PG (27.0-34.0); MEAN CORPUSCULAR HGB CONC 33.4 % (32.0-36.0); PLATELET COUNT 238 TH/MM3 (150-450); RED BLOOD COUNT 3.94 MIL/MM3 (4.00-5.30); RED CELL DISTRIBUTION WIDTH 14.4 % (11.6-17.2); REVIEW FLAG FINAL; WHITE BLOOD COUNT 5.8 TH/MM3 (4.0-11.0)
[2016-12-13 12:22] LABS: APTT (PATIENT) 27.8 SEC (24.3-30.1); INTERNATIONAL NORMALIZED RATIO 0.9 RATIO; PROTHROMBIN TIME - PATIENT 10.2 SEC (9.8-11.6)
[2016-12-13 12:28] LABS: BACTERIA, URINE RARE /hpf; BLOOD, URINE NEG (NEG); COMMENT (UR) CULT NOT INDICATED; CULTURE IF INDICATED CULT NOT INDICATED; GLUCOSE,URINE NEG (NEG); KETONE, URINE NEG (NEG); NITRITE,URINE NEG (NEG); URINE COLOR LIGHT-YELLOW (YELLW/STRAW)
[2016-12-13 12:42] LABS: BICARBONATE 28.6 MEQ/L (21.0-32.0); POTASSIUM 4.6 MEQ/L (3.5-5.1)
== END ==
LOC: CPRE 09:59
PROVIDERS: ATTEND Surgery
DX: Z01.812 Encounter for preprocedural laboratory examination (principal); I65.22 Occlusion and stenosis of left carotid artery
CPT/HCPCS: 36415; 80048; 81001; 85027; 85610; 85730